=== PATIENT | male | born 2000 | race Two or more races ===

== ENCOUNTER 2024-02-10 13:18 | Emergency (ER) | payer SELFPAY ==
[~2024-02-10] VITALS: Ht 190.5 cm; Wt 80.5 kg
[2024-02-10] MEDS ORDERED: TADA5TAB13 PO (13:25)
[2024-02-10 13:30] VITALS: TEMP 98.6
[2024-02-10 17:34] VITALS: BP 122/77; PULSE 73; RESP 17; O2SAT 100
[2024-02-10 17:37] LABS: BASOPHILS % (AUTO) 0.2 % (0.0-2.0); EOSINOPHILS % (AUTO) 0.1 % (1.0-6.0); HEMATOCRIT 41.1 % (41-53); HEMOGLOBIN 14.4 g/dL (13.5-17.5); LYMPHOCYTES # (AUTO) 0.9 K/uL (1.0-4.8); LYMPHOCYTES % (AUTO) 12.8 % (22.0-44.0); MEAN CORPUSCULAR HEMOGLOBIN 30.2 pg (26.0-34.0); MEAN CORPUSCULAR HGB CONC 35.1 G/dL (31.0-37.0); MEAN CORPUSCULAR VOLUME 86 fL (80-100); MONOCYTES # (AUTO) 0.3 K/uL (0.1-1.0); NEUTROPHILS # (AUTO) 6.1 K/uL (1.8-7.7); NEUTROPHILS % (AUTO) 82.9 % (40.0-70.0); PLATELET COUNT (AUTO) 240 K/uL (150-450); RED BLOOD CELL COUNT(AUTO) 4.77 MIL/uL (4.50-5.90); RED CELL DISTRIBUTION WIDTH 12.8 % (11.5-14.5); WHITE BLOOD COUNT (AUTO) 7.4 K/uL (4.5-11.0)
[2024-02-10 17:46] LABS: ANION GAP 10 mmol/L (8-16); CALCIUM, TOTAL 9.3 mg/dL (8.8-10.5); CARBON DIOXIDE 25 mmol/L (22-29); CHLORIDE 101 mmol/L (98-107); CREATININE 0.75 mg/dL (0.60-1.30); GLOMERULAR FILTR. RATE CALC > 60 mL/min (>60); GLUCOSE,RANDOM 98 mg/dL (70-110); POTASSIUM 4.3 mmol/L (3.5-5.1); SODIUM SERUM 136 mmol/L (136-145); UREA NITROGEN, BLOOD 8 mg/dL (7-18)
[2024-02-10 17:53] LABS: ALANINE AMINOTRANSFERASE 29 U/L (12-78); ALBUMIN 4.6 g/dL (3.4-5.0); ALKALINE PHOSPHATASE 60 U/L (46-116); ASPARTATE AMINOTRANSFERASE 20 U/L (15-37); TOTAL PROTEIN, SERUM 8.2 g/dL (6.4-8.2)
[2024-02-10 17:54] LABS: TROPONIN I-HIGH SENSITIVITY 5 ng/L (<76)
== END 2024-02-10 19:13 | disposition home or self-care (01) ==
LOC: EMS 13:18
DX: R00.2 Palpitations (principal); F41.9 Anxiety disorder, unspecified; Z91.011 Allergy to milk products; Z91.040 Latex allergy status
CPT/HCPCS: 71045; 80053; 83735; 84484; 85025; 93005; 99285; 36415-L1; 36415-TC